=== PATIENT | female | born 1960 | race Caucasian/White ===

== ENCOUNTER 2016-08-21 06:33 | Inpatient (IN) | payer OTHER ==
[2016-07-18 08:22] VITALS: BMI 35.0
--- NOTE | 2016-07-18 08:49 | PAT Medication Instructions ---
Service Date Jul 18, 2016. Current Home Medication List Atorvastatin (Lipitor), 10 MG PO HS Bupropion Hcl (Wellbutrin Xl), 300 MG PO QAM Chlorthalidone (Hygroton), 25 MG PO QAM Naproxen (Aleve), 2 TAB PO Q2D PRN for Pain Nitrofurantoin Monohyd Macrocr (Macrobid), 100 MG PO BID Omeprazole (Prilosec), 20 MG PO QAM Medication Instructions For Your Scheduled Surgery Nitrofurantoin Monohyd Macrocr (Macrobid), 100 MG PO BID (to be completed prior to surgery) - Check with surgeon for instructions: Naproxen (Aleve), 2 TAB PO Q2D PRN for Pain - Hold the following medications the morning of surgery: Chlorthalidone (Hygroton), 25 MG PO QAM - Take the following medications the morning of surgery with a sip of water: Omeprazole (Prilosec), 20 MG PO QAM Bupropion Hcl (Wellbutrin Xl), 300 MG PO QAM - Take the following medications as scheduled the night before surgery: Atorvastatin (Lipitor), 10 MG PO HS If you have any questions please call us at [phone] (Humaira Hernandez PA-C) or [phone] or [phone]
[2016-07-18 09:45] LABS: BASO % 0.9 %; BASO ABS # 0.03 K/uL (0-0.2); COMPLETE YES; EOS % 2.3 %; IG% 0.3 %; LYMPH % 30.5 %; LYMPH ABS # 1.05 K/uL (1.2-3.4); MEAN CELL VOLUME 85.2 fL (80-100); MEAN CORPUSCULAR HEMOGLOBIN 29.1 pg (25-34); MEAN CORPUSCULAR HGB CONC 34.1 g/dl (32-36); MEAN PLATELET VOLUME 11.6 fL (7.4-10.4); MONO % 11.3 %; NEUT % 54.7 %; PLATELET COUNT 203 K/uL (130-400); RED BLOOD COUNT 4.81 M/uL (4.2-5.4); WHITE BLOOD COUNT 3.44 K/uL (4.8-10.8)
[2016-07-18 10:05] LABS: PROTHROMBIN TIME (PATIENT) 10.9 SECONDS (9.0-12.0)
[2016-07-18 10:08] LABS: BUN/CREATININE RATIO 12.4 (10-20); CALCIUM 9.1 mg/dl (8.5-10.1); CREATININE 0.93 mg/dl (0.60-1.20); POTASSIUM 3.5 mmol/L (3.5-5.1)
--- NOTE | 2016-07-18 10:08 | DIAGNOSTIC IMAGING REPORT ---
CHEST PREADMISSION(PA/LAT) CLINICAL HISTORY: PAT preoperative evaluation COMPARISON STUDY: No previous studies for comparison. FINDINGS: The bones soft tissues and hemidiaphragms are normal. The cardiomediastinal silhouette is normal. The lungs are clear. The pulmonary vasculature is normal. IMPRESSION: Negative chest. Electronically signed by: Jaquan Sandoval M.D. 07/18/2016 10:07 AM Dictated Date/Time: 07/18/2016 10:05 AM
--- NOTE | 2016-08-15 10:05 | HISTORY & PHYSICAL EXAMINATION ---
DATE OF ADMISSION: 08/21/2016 CHIEF COMPLAINT: Bilateral knee pain, right side greater than left. HISTORY OF PRESENT ILLNESS: A 56-year-old white female, who has had a long history of bilateral knee pain, discomfort and we have been treating her conservatively over the years. Pain has gotten gradually worse and she is having trouble even functioning, particularly with respect to the right knee. She describes a global pain in her knee. The more she walks, the more it hurts. She has difficulty going up and down steps. She does have some good and bad days, but having more and more bad days. She cannot exercise at all. The injections have become less successful over time and she would like to have her right knee replaced. PAST MEDICAL HISTORY: 1. Elevated cholesterol. 2. Gastroesophageal reflux disease. 3. Obesity with a BMI of 36. PAST SURGICAL HISTORY: Include: 1. Shoulder surgery. 2. Herniorrhaphy x3. 3. x2. ALLERGIES: None. CURRENT MEDICINES: Include: 1. Hydrochlorothiazide 2. Omeprazole. 3. Bupropion 4. Atorvastatin. SOCIAL HISTORY: A 56-year-old white female. She works at [employer]. Lives in [place]. She is . FAMILY HISTORY: Noncontributory. REVIEW OF SYSTEMS: Negative for diabetes, neurologic problems, vascular problems or bleeding disorders. No chest pain or shortness of breath. No history of DVT or PE. PHYSICAL EXAMINATION: GENERAL: Reveals a healthy, pleasant middle-aged female. Looks in pretty good health. HEENT: Benign. NECK: Supple. No lymphadenopathy. LUNGS: Clear to auscultation. HEART: Regular rate and rhythm. ABDOMEN: Soft, nontender, nondistended. EXTREMITIES: Grossly neurovascularly intact except as follows: Examination of the right leg reveals the patient ambulates independently. She limps just slightly on the right side. She has got a small knee effusion. Range of motion of the right knee is about 5 degrees short of full extension to 120 degrees of flexion. She has got significant crepitance with knee motion. No pain with hip motion. X-RAYS: X-rays of the right knee reviewed. It shows advanced patellofemoral joint arthritis. She has got some moderate tibial femoral arthritis. Joint space is pretty well maintained, but clearly has osteophytes in all 3 compartments. ASSESSMENT: A 56-year-old white female with bilateral knee pain and degenerative joint disease, right side greater than left. Her most severe disease is in the patellofemoral joint, but does have significant tibial femoral arthritis. She has failed conservative treatment. PLAN: We had a long discussion as far as treatment options. She does not feel like she can go any longer like she is and she would like to have her knee replaced. The knee replacement is the only thing that is going to help her. I did talk to her about the less predictable nature of knee replacement in some way with advanced patellofemoral arthritis. She is fully aware of this. She would like to proceed. The risks and benefits of right total knee replacement were explained to the patient, including, but not limited to, DVT, PE, , infection, neurological, neurovascular, bleeding problems, pain, limited range of motion, stiffness, failure to relieve symptoms, incomplete relief of symptoms, need for further surgery in the future, persistent pain, need for revision surgery, etc. The patient understands and desires to proceed. I told her it is about a 70% chance this will help her significantly, 30% chance it may not help a whole lot. She understands this. The patient had a preoperative workup. Chest x-ray was negative. EKG was normal. Labs were all pretty normal. As far as discharge plans, she is planning to be discharged home, using the [facility] program. I will see her back 2 weeks postop.
[~2016-08-21] VITALS: Ht 172.7 cm; Wt 106.5 kg
[2016-08-21] VITALS (10 sets, daily range): BP systolic 94–138; BP diastolic 59–80; PULSE 61–92; TEMP 36.4–37.3; O2SAT 95–100; Ht 172.7 cm; Wt 106.5 kg
[~2016-08-21 06:33] MED LIST: ACETAMINOPHEN 500 MG TAB PO SCH; ATOR10TA88 PO; BUPIVACAINE 0.5 % 5 MG/1 ML PF 10ML VIAL ONE; BUPIVACAINE LIPOSOME 266 MG, BUPIVACAINE/EPINEPHRINE INJ 50 ML, SODIUM CHLORIDE 0.9% PF... INFIL SCH; BUPIVACAINE/EPINEPHRINE 0.25% 1:200,000 30 ML VIAL ONE; BUPR300T2 PO; CEFAZOLIN 2000 MG/60 ML D5W 60 ML IV SCH; DEXAMETHASONE SOD INJ 4 MG/ML VIAL ONE; GABAPENTIN 300 MG CAP PO SCH; HYG/25 PO; LACTATED RINGER'S 1000ML 1,000 ML IV SCH; LACTATED RINGER'S 1000ML IV SCH; LACTATED RINGER'S 500 ML IV SCH; METOCLOPRAMIDE HCL 10 MG TAB PO SCH; NAPR1TAB9 PO; NITR-5 PO; PRLSR20 PO; SCOPOLAMINE 1.5 MG TDSY TD SCH; TRANEXAMIC ACID INJ 1,000 MG in SODIUM CHLORIDE 0.9% 100ML 100 ML IV SCH
--- NOTE | 2016-08-21 06:52 | History & Physical Bridge Note ---
H&P Re-Evaluation Bridge Note: I have examined the patient, reviewed the History & Physical and in the interval since the performance of the History & Physical I have noted the following changes of clinical significance: No changes noted
[2016-08-21] MEDS ORDERED: FENTANYL CITRATE INJ 50 MCG/1 ML 2 ML VIAL ONE (07:13)
[2016-08-21] MEDS ORDERED: MIDAZOLAM HCL 1 MG/ML 2ML VIAL ONE ×2 (07:13)
[2016-08-21] MEDS ORDERED: PROPOFOL IV EMULSION 10 MG/ML 20 ML VIAL IV ONE (07:13)
[2016-08-21] MEDS ORDERED: BUPIVACAINE/EPINEPHRINE 0.25% 1:200,000 30 ML VIAL ONE (07:47)
[2016-08-21] MEDS ORDERED: SODIUM CHLORIDE 0.9% PF 50 ML VIAL ONE (07:48)
[2016-08-21] MEDS ORDERED: BUPIVACAINE LIPOSOME 1/3% 266 MG/20 ML VIAL INFIL ONE (07:48)
[2016-08-21] MEDS ORDERED: BACITRACIN 50000 UNIT VIAL ONE (07:48)
[2016-08-21] MEDS ORDERED: EpHEDrine SULFATE 50MG/5ML SYR ONE (09:02)
[2016-08-21] MEDS ORDERED: EpHEDrine SULFATE INJ 50 MG/ML AMP IV PRN (09:30)
[2016-08-21] MEDS ORDERED: FENTANYL CITRATE INJ 50 MCG/1 ML 2 ML VIAL IV PRN (09:30)
[2016-08-21] MEDS ORDERED: ATROPINE SULFATE 0.1 MG/ML 5ML SYR IV PRN (09:30)
[2016-08-21] MEDS ORDERED: ONDANSETRON INJ 2 MG/ML 2 ML VIAL IV PRN ×2 (09:30→10:15)
--- NOTE | 2016-08-21 10:13 | [facility] Post Operative Brief Note ---
Immediate Operative Summary Operative Date Aug 21, 2016. Pre-Operative Diagnosis Right knee degenerative joint disease Post-Operative Diagnosis Same as pre-operative diagnosis Procedure(s) Performed Right Total Knee Arthroplasty, Cemented Surgeon Dr. Bill Rahman Glassware Maker Surgeon(s) Andrew Arredondo PA-C Estimated Blood Loss 50ml Findings Right Knee DJD Fluids (cc crystalloids) 1200 cc Specimens A: Right knee bone and tissue Drains None Anesthesia Spinal Complication(s) None Disposition Recovery Room / PACU
[2016-08-21] MEDS ORDERED: ALUMINUM/MAGNESIUM/SIMETH (MAALOX MAX) 30 ML UDC PO PRN (10:15)
[2016-08-21] MEDS ORDERED: MAGNESIUM HYDROXIDE SUSP 30 ML UDC PO PRN (10:15)
[2016-08-21] MEDS ORDERED: ZOLPIDEM TARTRATE 5 MG TAB PO PRN (10:15)
[2016-08-21] MEDS ORDERED: MoRPHine SULFATE 2 MG/ML CARP IV PRN (10:15)
[2016-08-21] MEDS ORDERED: OXYCODONE HCL IR 5 MG TAB (IMMEDIATE RELEASE) PO PRN (10:15)
[2016-08-21] MEDS ORDERED: METOCLOPRAMIDE HCL INJ 5 MG/ML 2 ML VIAL IV PRN (10:15)
[2016-08-21] MEDS ORDERED: BISACODYL 10 MG SUPP PR PRN (10:15)
[2016-08-21] MEDS ORDERED: SILVER SULFADIAZINE 1% CR 50 GM JAR EXT PRN (10:15)
[2016-08-21] MEDS ORDERED: DiphenhydrAMINE HCL 50 MG/ML VIAL IV PRN (10:15)
--- NOTE | 2016-08-21 10:47 | DIAGNOSTIC IMAGING REPORT ---
RIGHT KNEE 1 OR 2 VIEWS ROUTINE CLINICAL HISTORY: Degenerative arthritis. Postoperative study COMPARISON: None. DISCUSSION: There are postsurgical changes of a total right knee arthroplasty and patellar resurfacing. The femoral and tibial components appear well seated. Overlying skin norma are visualized. There is air within soft tissues consistent with recent surgery. IMPRESSION: Postsurgical changes of a total right knee arthroplasty. Electronically signed by: Zen Guerra M.D. 08/21/2016 10:46 AM Dictated Date/Time: 08/21/2016 10:45 AM
--- NOTE | 2016-08-21 10:51 | Anesthesiology Progress Note ---
Anesthesia Post Op Note Date & Time Aug 21, 2016 at 10:52 Vital Signs Pain Intensity: 0 Vital Signs Past 12 Hours Date Time Temp Pulse Resp B/P Pulse Ox O2 Delivery O2 Flow Rate FiO2 08/21/16 10:30 65 12 110/62 100 Nasal Cannula 2 08/21/16 10:20 36.0 78 22 114/61 100 Nasal Cannula 2 08/21/16 07:02 36.7 76 20 138/78 97 Room Air Notes Mental Status: alert / awake / arousable, participated in evaluation Pt Amnestic to Procedure: Yes Nausea / Vomiting: adequately controlled Pain: adequately controlled Airway Patency, RR, SpO2: stable & adequate BP & HR: stable & adequate Hydration State: stable & adequate Neuraxial Anesthesia: was administered, sensory block is resolving Anesthetic Complications: no major complications apparent
[2016-08-21] MEDS: D5W AND 1/2NSS + 20MEQ KCL 1,000 ML IV SCH ×2 (13:07→20:16)
[2016-08-21] MEDS: FERROUS GLUCONATE 324 MG TAB PO SCH ×2 (13:10→20:17)
[2016-08-21] MEDS: KETOROLAC TROMETHAMINE 30 MG/ML VIAL IV. SCH ×2 (13:10→20:16)
--- NOTE | 2016-08-21 14:30 | PROGRESS NOTE ---
DATE: 08/21/2016 DATE: 08/21/2016. SUBJECTIVE: A 56-year-old white female postop from a right knee replacement. She is doing well. Not having any pain. No chest pain or shortness of breath. Not feeling dizzy or lightheaded. OBJECTIVE: VITAL SIGNS: Temperature is 36.7. Vital signs stable. PHYSICAL EXAMINATION: GENERAL: Reveals a healthy, pleasant middle-aged female. She is sitting up in bed and looks comfortable. LUNGS: Clear to auscultation. HEART: Regular rate and rhythm. ABDOMEN: Soft, nontender, nondistended. EXTREMITY EXAMINATION: Grossly neurovascularly intact except as follows: Examination of the right lower extremity reveals the leg to be well aligned. Dressing is clean, dry and intact. She can dorsiflex and plantarflex her foot appropriately. She is neurologically intact. X-RAYS: X-rays of the right knee from recovery room were reviewed. It shows a cemented posterior left total knee arthroplasty. Components looked to be in good position. No signs of problems. ASSESSMENT: A 56-year-old white female postop from a right knee replacement, doing well. Her pain is controlled. She is neurologically intact. PLAN: 1. DVT prophylaxis including thigh-high TEDs, SCDs, and aspirin twice a day. 2. PT/OT. Weightbearing as tolerated. Right total knee protocol. 3. Pain control. Doing well with current pain regimen. 4. IV antibiotics x24 hours. 5. Disposition: Plan to discharge to home with some home health once adequately recovered.
--- NOTE | 2016-08-21 15:28 | OPERATIVE REPORT ---
DATE OF OPERATION: 08/21/2016 PREOPERATIVE DIAGNOSIS: Right knee degenerative joint disease. POSTOPERATIVE DIAGNOSIS: Same. PROCEDURE PERFORMED: Right cemented posterior stabilized total knee. SURGEON: Bill Rahman M.D. ELECTRICITY TRADING ANALYST: Andrew Arredondo PA-C. COMPLICATIONS: None. ESTIMATED BLOOD LOSS: 50 mL. FLUID REPLACEMENT: 1200 mL crystalloid fluid replacement. ANESTHESIA: Spinal with adductor canal block. DRAINS: None. SPECIMENS: Right knee sent for pathology. TOURNIQUET TIME: 58 minutes at 300 mmHg. OPERATIVE INDICATIONS: The patient is a 56-year-old white female with a long-standing history of bilateral knee pain and discomfort, most severe in the patellofemoral joint. We have been treating her over the years extensively with conservative management including therapy, medicines, and injections. This became less successful over time. Right knee has become really more debilitating and she is having trouble even working. X-rays revealed advanced patellofemoral arthritis. She has some moderate tibial femoral arthritis. We explained the risks and benefits of surgery and the fact that knee replacement does not work quite as well for mostly patellofemoral arthritis. She is fully aware of this and wanted to proceed. OPERATIVE FINDINGS: Operative findings revealed advanced right knee DJD. She had grade 4 [id number] disease of the lateral side of the patella and the lateral trochlea. She had eburnation in the lateral trochlea. She did have pretty extensive medial disease as well. She had grade 4 disease of the medial femoral condyle. The lateral compartment was pretty well preserved. She had a moderate sized joint effusion. OPERATIVE IMPLANTS: Operative implants consisted of: 1. Biomet Vanguard size 65 right posterior stabilized femoral component. 2. Biomet size 67 tibial tray. 3. A 10 mm posterior stabilized polyethylene insert. 4. A 31 x 8 all poly patella. OPERATIVE PROCEDURE: The patient taken to the operating room, identified and placed on the operating table in supine position. All contact areas were appropriately padded. IV antibiotics were provided by the anesthesia team. A spinal anesthetic and adductor canal block had been provided in the holding area. Garcia catheter was placed in sterile fashion. Right thigh tourniquet was then placed and the right lower extremity was then prepped and draped in usual sterile fashion. The right leg was elevated and exsanguinated with Esmarch and tourniquet was placed at 300 mmHg. An anterior approach to the right knee was then performed through a longitudinal incision centered over the patella. Sharp dissection was carried out through the subcutaneous tissues down to the level of the extensor mechanism. Medial parapatellar arthrotomy incision was made. Some subperiosteal dissection was carried out medially. The fat pad was resected from beneath the patellar tendon. The lateral patellofemoral ligament was released. I elected to cut the patella first. The patella was cleaned of all soft tissues. Patellar thickness measured 18 mm in thickness and was cut down to 13. I sized the patella but did not drill the holes for the implant. I did resect the lateral osteophyte. Attention was then drawn back to the tibiofemoral joint. The knee was flexed. The ACL and PCL were then released from the distal femur and the tibia was subluxated anteriorly. The external tibial alignment jig was then placed in the anterior face of the tibia and adjusted 14 mm medially. Proximal tibial cut was made to remove about 4-5 mm of bone from the medial side. She did have a slight valgus appearance to her tibia. Tibia was then sized to a size 67. Attention was then drawn to the femur. The distal femur was entered with a sharp drill bit. Intramedullary canal was suctioned. A right 5-degree cutting guide was placed. Distal femoral cutting block was pinned in place. Distal femoral cut was made to take an additional 3 mm of bone off the distal femur. I brought the leg out into extension and did release the IT band and some of the posterolateral capsule to equalize the extension gap. Great care was taken to protect the peroneal nerve at all times. The femur was then sized to a size 65. This was downsized just very slightly. The AP cutting block was then pinned parallel to the epicondylar axis, which was 6 degrees of external rotation. The anterior cut, anterior chamfer, posterior cut, posterior chamfer cuts were made. Box cutting guide was placed and adjusted slightly lateral and the box cut was made. The knee was flexed. The remnants of the medial and lateral menisci were excised. The osteophytes were taken off the posterior aspect of the femur. Trial femoral component was placed. The tibial tray was pinned in maximum external rotation and drill and stem punch were used to create defect in proximal tibia for the tibial tray. The knee was then trialed and the 10 mm insert fit most appropriately. Attention was then drawn to the patella. The patella had already been cut. We then prepared that with a size 31 patella. Lug holes were drilled. The patellar button was placed. Knee was taken through range of motion and the patella tracked nicely with no thumbs test. Really tracked remarkably well considering undermined patellofemoral disease. Attention was then drawn toward placement of permanent components. All trial components were removed. A bone plug was placed in the distal femur to limit blood loss. A double batch of Palacos G cement was mixed. A right size 65 posterior stabilized femoral component, size 71 tibial tray, 10 mm posterior stabilized polyethylene insert, and a 31 x 8 all poly patella were then cemented in place. Knee was brought out into full extension until cement hardened. A final cement check was then performed. The pericapsular tissues were injected with 100 mL of a combination of 20 mL of Exparel, 30 mL of normal saline, 50 mL of 0.25% Marcaine with epinephrine. The tourniquet was then let down for final tourniquet time of 58 minutes. Hemostasis was assured with use of electrocautery. The patient did receive 1 gram of tranexamic acid. The extensor mechanism was then closed with a combination of #1 PDS suture and #1 Vicryl suture in a [id number] fashion. Extensor mechanism was checked and found to be intact. The subcutaneous tissues were then closed with 2-0 Dexon suture in a buried interrupted fashion. Skin was closed with skin norma. Leg was then cleaned and dried and a sterile dressing of Xeroform, 4 x 4, sterile cast padding and an Carlos bandage were applied. The patient then transferred to the recovery room in stable condition. The patient tolerated the procedure with no complications. ADDENDUM: After I made the distal femoral cut, I did bring the knee out into extension. Her lateral side was tight, so we did releasing of portion of the IT band and posterolateral capsule. We also had to release the popliteus in flexion to equalize the flexion gap. I attest to the content of the Intraoperative Record and any orders documented therein. Any exceptions are noted below. PRO
[2016-08-21] MEDS: CEFAZOLIN IV 2,000 MG in DEXTROSE 5% 50ML 50 ML IV SCH ×2 (15:47→23:25)
[2016-08-21] MEDS: ACETAMINOPHEN 500 MG TAB PO SCH ×2 (15:48→23:24)
[2016-08-21] MEDS: CHECK SCOPOLAMINE PATCH PLACEMENT SCH ×2 (15:49→23:24)
[2016-08-21] MEDS ORDERED: TRANEXAMIC ACID INJ 1,000 MG in SODIUM CHLORIDE 0.9% 100ML 100 ML IV SCH (16:00)
[2016-08-21] MEDS: TAPENTADOL ER 50 MG TABCR PO SCH (20:16)
[2016-08-21] MEDS: DOCUSATE SODIUM 100 MG CAP PO SCH (20:16)
[2016-08-21] MEDS: ATORVASTATIN 10 MG TAB PO SCH (20:17)
[2016-08-21] MEDS: ASPIRIN 325 MG ECTAB PO SCH (20:17)
[2016-08-22] MEDS: D5W AND 1/2NSS + 20MEQ KCL 1,000 ML IV SCH ×2 (01:31→07:25)
[2016-08-22] MEDS: KETOROLAC TROMETHAMINE 30 MG/ML VIAL IV. SCH ×4 (01:31→20:34)
[2016-08-22 03:08] VITALS: BP 101/63; PULSE 61; TEMP 36.6; O2SAT 97
[2016-08-22 06:14] LABS: HEMATOCRIT 32.3 % (37-47); MEAN CELL VOLUME 84.8 fL (80-100); MEAN CORPUSCULAR HEMOGLOBIN 29.1 pg (25-34); MEAN CORPUSCULAR HGB CONC 34.4 g/dl (32-36); MEAN PLATELET VOLUME 11.2 fL (7.4-10.4); PLATELET COUNT 170 K/uL (130-400); RED BLOOD COUNT 3.81 M/uL (4.2-5.4)
[2016-08-22 06:46] LABS: BUN/CREATININE RATIO 12.2 (10-20); CALCIUM 8.2 mg/dl (8.5-10.1); CREATININE 0.77 mg/dl (0.60-1.20); POTASSIUM 3.4 mmol/L (3.5-5.1)
[2016-08-22] MEDS: CHECK SCOPOLAMINE PATCH PLACEMENT SCH ×3 (07:22→23:41)
[2016-08-22] MEDS: FERROUS GLUCONATE 324 MG TAB PO SCH ×3 (07:23→18:55)
[2016-08-22] MEDS: ACETAMINOPHEN 500 MG TAB PO SCH ×3 (07:24→23:40)
[2016-08-22] MEDS: TAPENTADOL ER 50 MG TABCR PO SCH ×2 (08:22→20:38)
[2016-08-22] MEDS: BuPROPion XL 300 MG TABCR PO SCH (08:23)
[2016-08-22] MEDS: PANTOprazole SOD 40 MG TAB PO SCH (08:23)
[2016-08-22] MEDS: ASPIRIN 325 MG ECTAB PO SCH ×2 (08:23→22:05)
[2016-08-22] MEDS: MULTIVITAMIN TAB PO SCH (08:23)
[2016-08-22] MEDS: CHLORTHALIDONE 25 MG TAB PO SCH (08:23)
[2016-08-22] MEDS: DOCUSATE SODIUM 100 MG CAP PO SCH ×2 (08:23→22:05)
[2016-08-22 08:24] VITALS: BP 118/76; PULSE 66; TEMP 36.4; O2SAT 99
--- NOTE | 2016-08-22 08:32 | Anesthesiology Progress Note ---
Anesthesia Post Op Note Date & Time Aug 22, 2016 at 08:32 Vital Signs Pain Intensity: 0.0 Vital Signs Past 12 Hours Date Time Temp Pulse Resp B/P Pulse Ox O2 Delivery O2 Flow Rate FiO2 08/22/16 08:24 36.4 66 16 118/76 99 Room Air 08/22/16 07:31 Room Air 08/22/16 03:08 36.6 61 14 101/63 97 Room Air 08/21/16 23:20 36.5 63 18 94/59 95 Room Air 08/21/16 23:18 Room Air Notes Mental Status: alert / awake / arousable, participated in evaluation Pt Amnestic to Procedure: Yes Nausea / Vomiting: adequately controlled Pain: adequately controlled Airway Patency, RR, SpO2: stable & adequate BP & HR: stable & adequate Hydration State: stable & adequate Neuraxial Anesthesia: sensory block resolved Anesthetic Complications: no major complications apparent
[2016-08-22] MEDS ORDERED: POTASSIUM CHLORIDE 10 MEQ TABCR PO ONE ×2 (08:45→18:00)
[2016-08-22] MEDS ORDERED: NON-FORMULARY MEDICATION (Omeprazole (Prilosec) 20 MG) PO SCH (09:00)
[2016-08-22] MEDS ORDERED: ASPEC325 PO (11:05)
[2016-08-22] MEDS ORDERED: MORP15TA19 PO (11:05)
[2016-08-22] MEDS ORDERED: RXC5 PO (11:05)
[2016-08-22] MEDS ORDERED: ACET-1138 PO (11:05)
--- NOTE | 2016-08-22 11:07 | Discharge Instructions ---
Discharge Instructions Date of Service Aug 22, 2016. Admission Reason for Admission: Right Knee Osteoarthritis, Knee Pain Discharge Discharge Diagnosis / Problem: Right Knee Replacement Discharge Goals Goal(s): Decrease discomfort, Improve function, Increase independence, Improve disease control, Therapeutic intervention Activity Recommendations Activity Limitations: per Instructions/Follow-up section Weightbearing Status: Right weightbearing . Instructions / Follow-Up Instructions / Follow-Up ACTIVITY RECOMMENDATIONS: Physical Therapy: * You will go to physical therapy three times each week for four to six weeks after your surgery in order to regain your knee range of motion and to retrain your knee to work properly. * It is just as important to make sure you are getting your knee perfectly straight as it is to regain your knee bend. * Taking a pain pill an hour before therapy can help you have a more productive and comfortable therapy session. Home Exercise: * You were shown a series of exercises (heel props, heel slides, etc.) in the hospital. Do these exercises three to four times each day including the exercises you were shown in physical therapy. Walking: * Get up and walk several times each day. For the first four weeks, try not to stand or walk for more than one hour at a time. If you do stand or walk for more than one hour, you will not hurt anything, but your knee and leg will likely swell. * As you feel comfortable, you may change from the walker or crutches to a cane and then to independent walking. MEDICATIONS: New Medicine: * You will likely be taking one or more of these medications: 1. MS Contin - A long-acting pain medication. Take 1 tablet twice a day for the first ten days to decrease your baseline level of pain. 2. Oxycodone - A quick and shorter-acting pain medication. Take one to two tablets every four to six hours to lessen your pain. 3. Aspirin - Thins your blood to lessen the chance of forming a blood clot. * The most common side effects of pain medicine and iron are nausea and constipation. If nausea or constipation is too much of a problem or if you have any questions about your new medicines or doses, call [facility] at . We will try to help you manage these issues. VERY IMPORTANT TO READ AND REVIEW" Pain: * The immediate post-operative period after knee replacement surgery is often quite painful. * You are given a prescription for pain medicine. You should take it, as directed, when you need it, especially before physical therapy and before going to bed. Pain that interferes with sleep is very common and can last several months. * You will likely need pain medicine for the first four to six weeks. It will not stop all of the pain. The pain will lessen and as you feel better, you may change to milder pain medicine such as Tylenol. * The most common side effects of pain medicine are nausea and constipation, so don't take more than you need. SPECIAL CARE INSTRUCTIONS: TEDs/Elastic Stockings: * The white elastic stockings help limit swelling and prevent blood clots from forming in your legs. The more you wear them, the more they work. * Wear them for six weeks after knee replacement surgery and four weeks after partial knee replacement. Prevention of Infection: * Take antibiotics one hour before any dental cleaning, dental work, urological procedure, gastrointestinal procedure or any invasive surgery in order to prevent your new joint from getting infected. * You may get the antibiotics from the doctor performing the procedure or you may call our office at before and we will call in a prescription to the pharmacy of your choice. Things to Watch For: * Drainage from the incision site that occurs more than one week after your surgery. * Severely increased knee/leg pain or swelling. * Increased redness at the incision site. * Fever above 102 degrees Fahrenheit. * Unusual chest pain or shortness of breath. * Unusual pain or burning with urination. Call [facility] at with any of the above problems or if you have any questions about your medicines or recovery. FOLLOW UP VISIT: Make an appointment to see your doctor for approximately two weeks after surgery for a progress check and staple removal by calling the office at . Current Hospital Diet Patient's current hospital diet: Regular Diet Discharge Diet Recommended Diet: Regular Diet Procedures Procedures Performed: Right Total Knee Arthroplasty, Cemented Pending Studies Studies pending at discharge: no Medical Emergencies . Who to Call and When: Medical Emergencies: If at any time you feel your situation is an emergency, please call [phone] immediately. . Non-Emergent Contact Non-Emergency issues call your: Surgeon . "Provider Documentation" section prepared by Bill Rahman. VTE Core Measure Inpt VTE Proph given/why not?: Other Anticoagulation, T.E.D. Stockings, SCD's
[2016-08-22 11:13] VITALS: O2SAT 99
--- NOTE | 2016-08-22 12:21 | PROGRESS NOTE ---
DATE: 08/22/2016 SUBJECTIVE: 56-year-old white female postop day 1 from right knee replacement. She is doing well. Pain has been very well controlled. Therapy went well. Denies any chest pain or shortness of breath. Not feeling dizzy or lightheaded. OBJECTIVE: VITAL SIGNS: Temperature 36.4. Vital signs stable. PHYSICAL EXAMINATION: GENERAL: Healthy pleasant, middle-aged female. She is sitting up in bed and looks pretty comfortable. LUNGS: Clear to auscultation. HEART: Regular rate and rhythm. ABDOMEN: Soft, nontender, nondistended. EXTREMITIES: Grossly neurovascularly intact except as follows. Examination of the right lower extremity reveals the dressing to be clean, dry and intact. She can dorsiflex and plantarflex her foot appropriately. She is neurologically intact. LABORATORY DATA: Hemoglobin 11.1, hematocrit 32.3. Electrolytes are stable. Potassium slightly low at 3.4. ASSESSMENT: 56-year-old white female postop day 1 from right knee replacement, doing well. Pain is controlled. Potassium is a little bit low and we will supplement that. PLAN: 1. DVT prophylaxis including thigh-high TEDs, SCDs, and aspirin twice a day. 2. PT/OT. Weightbearing as tolerated. Total knee protocol. 3. Pain control. Doing well with current pain regimen. 4. Hypokalemia. Will supplement her potassium and recheck tomorrow. 5. Disposition: Plan to discharge to home with some home health once adequately recovered.
[2016-08-22 13:28] VITALS: BP 140/80; PULSE 86; TEMP 36.6; O2SAT 96
[2016-08-22 15:24] VITALS: BP 116/72; PULSE 70; TEMP 36.7; O2SAT 97
[2016-08-22 16:00] VITALS: O2SAT 97
[2016-08-22] MEDS: ATORVASTATIN 10 MG TAB PO SCH (22:05)
[2016-08-23] MEDS: KETOROLAC TROMETHAMINE 30 MG/ML VIAL IV. SCH ×2 (01:40→07:29)
[2016-08-23 06:04] VITALS: BP 105/71; PULSE 71; TEMP 36.7; O2SAT 98
[2016-08-23] MEDS: ASPIRIN 325 MG ECTAB PO SCH (07:28)
[2016-08-23] MEDS: FERROUS GLUCONATE 324 MG TAB PO SCH (07:28)
[2016-08-23] MEDS: DOCUSATE SODIUM 100 MG CAP PO SCH (07:28)
[2016-08-23] MEDS: ACETAMINOPHEN 500 MG TAB PO SCH (07:29)
[2016-08-23] MEDS: TAPENTADOL ER 50 MG TABCR PO SCH (07:29)
[2016-08-23] MEDS: PANTOprazole SOD 40 MG TAB PO SCH (07:29)
[2016-08-23] MEDS: MULTIVITAMIN TAB PO SCH (07:29)
[2016-08-23] MEDS: CHLORTHALIDONE 25 MG TAB PO SCH (07:30)
[2016-08-23] MEDS: BuPROPion XL 300 MG TABCR PO SCH (07:30)
--- NOTE | 2016-08-23 07:39 | PROGRESS NOTE ---
DATE: 08/23/2016 DATE: 08/23/2016. SUBJECTIVE: A 56-year-old white female postop day 2 from a right knee replacement. She is just a little bit more sore today, but very manageable. No chest pain or shortness of breath. Not feeling dizzy or lightheaded. OBJECTIVE: VITAL SIGNS: Temperature 36.7. Vital signs stable. PHYSICAL EXAMINATION: GENERAL: Reveals a healthy, pleasant middle-aged female. She is sitting up at her bedside chair eating breakfast. She looks comfortable. LUNGS: Clear to auscultation. HEART: Regular rate and rhythm. ABDOMEN: Soft, nontender, nondistended. EXTREMITY EXAMINATION: Grossly neurovascularly intact except as follows: Examination of the leg reveals the dressing to be clean, dry and intact. She can dorsiflex and plantarflex her foot appropriately. Calf is soft and supple. She is neurologically intact. LABORATORY DATA: Potassium is 3.9. ASSESSMENT: A 56-year-old white female postop day 2 from a right knee replacement, doing well. Potassium is improved and normal. PLAN: 1. DVT prophylaxis including thigh-high TEDs, SCDs, and aspirin twice a day. 2. PT/OT. Weightbearing as tolerated. Right total knee protocol. 3. Pain control. Doing well with current pain regimen. 4. Hypokalemia. Resolved after potassium supplementation. She can follow up with the medical doctor on this. 5. Disposition: Plan to discharge to home with home health.
[2016-08-23 07:47] VITALS: BP 105/71; PULSE 71; TEMP 36.7; O2SAT 98
== END 2016-08-23 10:02 | disposition home health service (06) | DRG 470 ==
LOC: ENRESERVTM → ENRESERVDT → C.ACU 06:33 → C.3E 10:13
PROVIDERS: ADMIT Orthopaedic Surgery Sports Medicine; ATTEND Orthopaedic Surgery Sports Medicine
PROC: 0SRC0J9 Replacement of Right Knee Joint with Synthetic Substitute, Cemented, Open Approach (ICD-10-PCS; principal; 2016-08-21 08:55)
DX: M17.11 Unilateral primary osteoarthritis, right knee (principal); E87.6 Hypokalemia; E78.00 Pure hypercholesterolemia, unspecified; K21.9 Gastro-esophageal reflux disease without esophagitis; E66.9 Obesity, unspecified; Z68.36 Body mass index [BMI] 36.0-36.9, adult

== ENCOUNTER → 2017-01-18 | Outpatient (CLI) | payer OTHER ==
[~2017-01-18] MED LIST changes: +ACET-1138 PO; -ACETAMINOPHEN 500 MG TAB PO SCH; +ASPEC325 PO; -BUPIVACAINE 0.5 % 5 MG/1 ML PF 10ML VIAL ONE; -BUPIVACAINE LIPOSOME 266 MG, BUPIVACAINE/EPINEPHRINE INJ 50 ML, SODIUM CHLORIDE 0.9% PF... INFIL SCH; -BUPIVACAINE/EPINEPHRINE 0.25% 1:200,000 30 ML VIAL ONE; -CEFAZOLIN 2000 MG/60 ML D5W 60 ML IV SCH; -DEXAMETHASONE SOD INJ 4 MG/ML VIAL ONE; -GABAPENTIN 300 MG CAP PO SCH; -LACTATED RINGER'S 1000ML 1,000 ML IV SCH; -LACTATED RINGER'S 1000ML IV SCH; -LACTATED RINGER'S 500 ML IV SCH; -METOCLOPRAMIDE HCL 10 MG TAB PO SCH; -NITR-5 PO; +RXC5 PO; -SCOPOLAMINE 1.5 MG TDSY TD SCH; -TRANEXAMIC ACID INJ 1,000 MG in SODIUM CHLORIDE 0.9% 100ML 100 ML IV SCH
--- NOTE | 2017-01-21 12:30 | MAMMOGRAPHY REPORT ---
BILATERAL DIGITAL SCREENING MAMMOGRAM TOMOSYNTHESIS WITH CAD: 01/18/2017 CLINICAL HISTORY: Routine screening. The patient reported to the technologist that she felt a possib le change in the left breast in an area of a prior FNA. TECHNIQUE: Breast tomosynthesis in addition to standard 2D mammography was performed. Current study was also evaluated with a Computer Aided Detection (CAD) system. COMPARISON: Comparison is made to exams dated: 12/02/2015 mammogram, 10/29/2014 mammogram, 10/23/2013 ma mmogram, 10/17/2012 mammogram, and 08/30/2011 mammogram - [facility]. BREAST COMPOSITION: There are scattered areas of fibroglandular density in both breasts. FINDINGS: No suspicious masses, calcifications, or areas of architectural distortion are noted in ei ther breast. There has been no significant interval change compared to prior exams. A triangle marke r trujillo the site of the possible changing lump pointed out by the patient; no suspicious masses or ot her suspicious mammographic abnormalities are noted in this region. Scattered bilateral benign-appea ring calcifications are stable. IMPRESSION: ACR BI-RADS CATEGORY 1: NEGATIVE There is no mammographic evidence of malignancy. A 1 year screening mammogram is recommended. Additi onally, the patient reported a possible change in a left breast lump which has previously undergone f ine-needle aspiration; recommend clinical follow-up and if clinically suspicious consider ultrasound for further evaluation. The patient will receive written notification of the results. Approximately 10% of breast cancers are not detected with mammography. A negative mammographic report should not delay biopsy if a clinically suggestive mass is present. Angelica Echeverria M.D. ah/:01/18/2017 15:50:00 Wafer Substrate Tester: Agnes HERNANDEZ)([place]), [facility] letter sent: Normal 1/2 BI-RADS Code: ACR BI-RADS Category 1: Negative
== END | disposition home or self-care (01) ==
LOC: C.MAMM 14:47
PROVIDERS: ATTEND Family Medicine
DX: Z12.31 Encounter for screening mammogram for malignant neoplasm of breast (principal)